=== PATIENT | male | born 1950 | race Caucasian/White ===

== ENCOUNTER 2018-02-13 20:53 | Emergency (ER) | payer OTHER ==
[~2018-02-13] VITALS: Ht 180.3 cm; Wt 91.6 kg
[2018-02-13] MEDS ORDERED: SITA100T2 PO (21:45)
[2018-02-13] MEDS ORDERED: METF500 PO (21:45)
[2018-02-13] MEDS ORDERED: TIOT18 INH (21:46)
[2018-02-13] MEDS ORDERED: POTA10T PO (21:46)
[2018-02-13] MEDS ORDERED: COMBIVENT RESPIM4 GM (21:46)
[2018-02-13] MEDS ORDERED: EZET10 PO (21:47)
[2018-02-13] MEDS ORDERED: LOSA25 PO (21:47)
[2018-02-13] MEDS ORDERED: ASPI81CH PO (21:47)
[2018-02-13] MEDS ORDERED: LOVA40 (21:47)
[2018-02-13] MEDS ORDERED: MELO7.5 PO (21:48)
[2018-02-13] MEDS ORDERED: GABA100 PO (21:48)
[2018-02-13] MEDS ORDERED: METCAR500 PO (21:49)
[2018-02-13] MEDS ORDERED: CHOL10002 (21:49)
[2018-02-13 22:24] LABS: Source, Urine Clean Catch
[2018-02-13 22:26] LABS: Bilirubin, Urine Neg (Neg); Blood, Urine Neg (Neg); Glucose Qualitative, Urine 4+ (Neg); Ketones, Urine 2+ (Neg); Leukocyte Esterase, Urine Neg (Neg); Nitrite, Urine Neg (Neg); Protein, Urine Neg (Neg); Specific Gravity, Urine 1.025 (1.003-1.022); Urobilinogen, Urine 1+ (Normal)
[2018-02-13 22:31] LABS: Appearance, Urine Clear (Clear); Color, Urine Yellow (P-Yellow)
[2018-02-14 00:36] LABS: Amylase, Blood 66 U/L (25-115)
== END 2018-02-13 23:42 | disposition home or self-care (01) ==
LOC: ER 20:53
PROVIDERS: Emergency Medicine; Nurse Practitioner Family
DX: D47.3 Essential (hemorrhagic) thrombocythemia (principal); D72.829 Elevated white blood cell count, unspecified; E11.9 Type 2 diabetes mellitus without complications; F17.210 Nicotine dependence, cigarettes, uncomplicated; Z79.84 Long term (current) use of oral hypoglycemic drugs; Z79.82 Long term (current) use of aspirin; Z79.899 Other long term (current) drug therapy
CPT/HCPCS: 36415; 71046; 81003; 82150; 83690; 99283

== ENCOUNTER → 2018-02-13 | Outpatient (CLI) | payer OTHER ==
[~2018-02-13] MED LIST: ASPI81CH PO; CHOL10002; COMBIVENT RESPIM4 GM; EZET10 PO; GABA100 PO; LOSA25 PO; LOVA40; MELO7.5 PO; METCAR500 PO; METF500 PO; POTA10T PO; SITA100T2 PO; TIOT18 INH
[2018-02-13 16:06] LABS: BASOPHILS ABSOLUTE AUTO 0.24 K/mm3 (0.00-0.23); BASOPHILS PERCENT AUTO 1 % (0-2); EOSINOPHILS ABSOLUTE AUTO 0.35 K/mm3 (0.00-0.68); EOSINOPHILS PERCENT AUTO 2 % (0-6); Hematocrit 51.3 % (37.0-53.0); Hemoglobin 17.1 g/dL (13.5-17.5); IMMATURE GRAN ABSOLUTE AUTO 0.29 K/mm3 (0.00-0.10); IMMATURE GRAN PERCENT AUTO 2 % (0-1); LYMPHOCYTES ABSOLUTE AUTO 2.98 K/mm3 (0.84-5.20); LYMPHOCYTES PERCENT AUTO 16 % (21-46); MONOCYTES ABSOLUTE AUTO 0.48 K/mm3 (0.16-1.47); MONOCYTES PERCENT AUTO 3 % (4-13); Mean Corpuscular HGB 29.5 pg (26.0-34.0); Mean Corpuscular HGB Conc 33.3 g/dL (31.5-36.5); Mean Corpuscular Volume 89 fL (80-100); Mean Platelet Volume 11.7 fL (9.1-12.4); NEUTROPHILS ABSOLUTE AUTO 14.48 K/mm3 (1.96-9.15); NEUTROPHILS PERCENT AUTO 77 % (41-73); Platelet Count 994 K/mm3 (150-400); RDW Coefficient Variation 13.3 % (11.7-14.2); RDW Standard Deviation 42.7 fL (35.1-46.3); Red Blood Cell Count 5.79 M/mm3 (4.30-5.90); White Blood Cell Count 18.82 K/mm3 (4.00-11.30)
[2018-02-13 16:35] LABS: Alanine Aminotransfer (ALT/SGP 59 U/L (12-78); Albumin, Blood 4.1 g/dL (3.4-5.0); Albumin/Globulin Ratio 1.2 (0.8-1.8); Alk Phos 96 U/L (50-136); Anion Gap 9 mmol/L (6-16); Aspartate Aminotrans (AST/SGOT 40 U/L (12-37); Bilirubin, Total 0.6 mg/dL (0.1-1.0); Blood Urea Nitrogen 12 mg/dL (8-24); Bun/Creatinine Ratio 19.2 (12.0-20.0); CHOL/HDL RATIO 5.4; CO2, Blood 24 mmol/L (21-32); Chloride, Blood 101 mmol/L (98-108); Cholesterol 134 mg/dL (50-200); Creatinine, Blood 0.62 mg/dL (0.60-1.20); Globulin, Blood 3.3 g/dL (2.2-4.0); Glomerular Filtration Rate >60 (60-); Glucose, Blood 343 mg/dL (70-99); HDL Cholesterol 25 mg/dL (>39); LDL/HDL RATIO 2.2; Low Density Lipoprotein Chol 56 mg/dL (0-110); Potassium, Blood 4.5 mmol/L (3.5-5.5); Sodium, Blood 134 mmol/L (136-145); Total Protein, Blood 7.4 g/dL (6.4-8.2); Triglycerides 266 mg/dL (30-160); Very Low Density Lipoprot Chol 53 mg/dL (6-32)
[2018-02-13 19:17] LABS: Hematocrit 50.3 % (37.0-53.0); Hemoglobin 16.9 g/dL (13.5-17.5); Mean Corpuscular HGB Conc 33.6 g/dL (31.5-36.5); Mean Corpuscular Volume 89 fL (80-100); Mean Platelet Volume 11.3 fL (9.1-12.4); RDW Coefficient Variation 13.1 % (11.7-14.2); RDW Standard Deviation 42.7 fL (35.1-46.3); Red Blood Cell Count 5.64 M/mm3 (4.30-5.90); White Blood Cell Count 20.11 K/mm3 (4.00-11.30)
[2018-02-13 19:34] LABS: Platelet Count 1050 K/mm3 (150-400)
[2018-02-13 19:39] LABS: BAND PERCENT MAN 1 % (0-8); BASOPHILS PERCENT MAN 0 % (0-2); EOSINOPHILS PERCENT MAN 0 % (0-6); LYMPHOCYTES ABSOLUTE MAN 2.61 K/mm3 (0.84-5.20); LYMPHOCYTES PERCENT MAN 13 % (21-46); MONOCYTES PERCENT MAN 1 % (4-13); NEUTROPHILS ABSOLUTE MAN 17.29 K/mm3 (1.96-9.15); SEG NEUTROPHILS PERCENT MAN 85 % (41-73); TOTAL CELLS COUNTED 100
[2018-02-16 08:11] LABS: Amylase, Blood 35 U/L (25-115)
== END ==
LOC: LAB 15:53 → LAB SHORT 15:53
PROVIDERS: Nurse Practitioner Family
DX: I10 Essential (primary) hypertension (principal); E78.5 Hyperlipidemia, unspecified; E55.9 Vitamin D deficiency, unspecified; D47.3 Essential (hemorrhagic) thrombocythemia; D72.829 Elevated white blood cell count, unspecified
CPT/HCPCS: 80053; 80061; 82150; 82306; 83690; 85007; 85025; 85027

== ENCOUNTER → 2018-02-19 | Outpatient (CLI) | payer OTHER ==
[2018-02-19 14:14] LABS: BASOPHILS ABSOLUTE AUTO 0.18 K/mm3 (0.00-0.23); BASOPHILS PERCENT AUTO 1 % (0-2); EOSINOPHILS ABSOLUTE AUTO 0.15 K/mm3 (0.00-0.68); EOSINOPHILS PERCENT AUTO 1 % (0-6); Hemoglobin 16.5 g/dL (13.5-17.5); IMMATURE GRAN ABSOLUTE AUTO 0.12 K/mm3 (0.00-0.10); IMMATURE GRAN PERCENT AUTO 1 % (0-1); LYMPHOCYTES ABSOLUTE AUTO 2.02 K/mm3 (0.84-5.20); LYMPHOCYTES PERCENT AUTO 13 % (21-46); MONOCYTES ABSOLUTE AUTO 0.38 K/mm3 (0.16-1.47); MONOCYTES PERCENT AUTO 2 % (4-13); Mean Corpuscular HGB 29.9 pg (26.0-34.0); Mean Corpuscular Volume 91 fL (80-100); Mean Platelet Volume 11.4 fL (9.1-12.4); NEUTROPHILS ABSOLUTE AUTO 13.12 K/mm3 (1.96-9.15); NEUTROPHILS PERCENT AUTO 82 % (41-73); RDW Coefficient Variation 13.2 % (11.7-14.2); Red Blood Cell Count 5.52 M/mm3 (4.30-5.90); White Blood Cell Count 15.97 K/mm3 (4.00-11.30)
[2018-02-19 14:24] LABS: Platelet Count 1193 K/mm3 (150-400)
== END | disposition home or self-care (01) ==
LOC: LAB SHORT 13:58 → LAB 13:58
PROVIDERS: Nurse Practitioner Family
DX: R74.8 Abnormal levels of other serum enzymes (principal)
CPT/HCPCS: 83690; 85025

== ENCOUNTER → 2018-03-06 | Outpatient (CLI) | payer OTHER ==
[~2018-03-06] MED LIST changes: +ASPI325 PO
[2018-03-06 19:26] LABS: BASOPHILS ABSOLUTE AUTO 0.26 K/mm3 (0.00-0.23); BASOPHILS PERCENT AUTO 2 % (0-2); EOSINOPHILS ABSOLUTE AUTO 0.25 K/mm3 (0.00-0.68); EOSINOPHILS PERCENT AUTO 1 % (0-6); Hematocrit 45.9 % (37.0-53.0); Hemoglobin 15.2 g/dL (13.5-17.5); IMMATURE GRAN ABSOLUTE AUTO 0.27 K/mm3 (0.00-0.10); IMMATURE GRAN PERCENT AUTO 2 % (0-1); LYMPHOCYTES ABSOLUTE AUTO 2.49 K/mm3 (0.84-5.20); LYMPHOCYTES PERCENT AUTO 14 % (21-46); MONOCYTES ABSOLUTE AUTO 0.39 K/mm3 (0.16-1.47); MONOCYTES PERCENT AUTO 2 % (4-13); Mean Corpuscular HGB 29.6 pg (26.0-34.0); Mean Corpuscular HGB Conc 33.1 g/dL (31.5-36.5); Mean Corpuscular Volume 90 fL (80-100); Mean Platelet Volume 11.1 fL (9.1-12.4); NEUTROPHILS ABSOLUTE AUTO 14.06 K/mm3 (1.96-9.15); NEUTROPHILS PERCENT AUTO 79 % (41-73); RDW Coefficient Variation 13.2 % (11.7-14.2); RDW Standard Deviation 43.5 fL (35.1-46.3); Red Blood Cell Count 5.13 M/mm3 (4.30-5.90); White Blood Cell Count 17.72 K/mm3 (4.00-11.30)
[2018-03-06 19:55] LABS: Amylase, Blood 32 U/L (25-115)
[2018-03-06 19:56] LABS: Alanine Aminotransfer (ALT/SGP 51 U/L (12-78); Albumin, Blood 3.9 g/dL (3.4-5.0); Albumin/Globulin Ratio 1.3 (0.8-1.8); Alk Phos 90 U/L (50-136); Anion Gap 9 mmol/L (6-16); Aspartate Aminotrans (AST/SGOT 35 U/L (12-37); Bilirubin, Total 0.4 mg/dL (0.1-1.0); Blood Urea Nitrogen 10 mg/dL (8-24); CO2, Blood 23 mmol/L (21-32); Chloride, Blood 103 mmol/L (98-108); Creatinine, Blood 0.62 mg/dL (0.60-1.20); Globulin, Blood 3.1 g/dL (2.2-4.0); Glomerular Filtration Rate >60 (60-); Glucose, Blood 252 mg/dL (70-99); Potassium, Blood 4.5 mmol/L (3.5-5.5); Sodium, Blood 135 mmol/L (136-145)
[2018-03-06 20:34] LABS: Platelet Count 1236 K/mm3 (150-400)
== END | disposition home or self-care (01) ==
LOC: LAB SHORT 15:00 → LAB 15:00
PROVIDERS: Nurse Practitioner Family
DX: K85.10 Biliary acute pancreatitis without necrosis or infection (principal)
CPT/HCPCS: 80053; 82150; 83690; 85025

== ENCOUNTER 2018-03-12 12:44 | Inpatient (IN) | payer OTHER ==
[~2018-03-12] VITALS: Ht 180.3 cm; Wt 91.0 kg
[~2018-03-12 12:44] MED LIST changes: -ASPI325 PO
[2018-03-12 13:00] LABS: Calcium, Ionized (POC) 1.06 mmol/L (1.10-1.46); Chloride (POC) 99 mmol/L (98-108); Creatinine (POC) 0.9 mg/dL (0.8-1.3); Glucose (ISTAT POC) 335 mg/dL (70-99); Hemoglobin (POC) 15.6 g/dL (13.5-17.5); Potassium (POC) 4.5 mmol/L (3.5-5.5); Sodium (POC) 135 mmol/L (135-148); Total CO2 (POC) 27 mmol/L (21-32)
[2018-03-12 13:26] LABS: Hematocrit 44.7 % (37.0-53.0); Hemoglobin 14.8 g/dL (13.5-17.5); Mean Corpuscular HGB 29.9 pg (26.0-34.0); Mean Corpuscular HGB Conc 33.1 g/dL (31.5-36.5); Mean Corpuscular Volume 90 fL (80-100); Mean Platelet Volume 11.2 fL (9.1-12.4); RDW Coefficient Variation 13.4 % (11.7-14.2); RDW Standard Deviation 44.3 fL (35.1-46.3); Red Blood Cell Count 4.95 M/mm3 (4.30-5.90); White Blood Cell Count 26.69 K/mm3 (4.00-11.30)
[2018-03-12 13:44] LABS: Platelet Count 1268 K/mm3 (150-400)
[2018-03-12 13:51] LABS: Alanine Aminotransfer (ALT/SGP 48 U/L (12-78); Albumin, Blood 3.7 g/dL (3.4-5.0); Albumin/Globulin Ratio 1.1 (0.8-1.8); Alk Phos 88 U/L (50-136); Anion Gap 11 mmol/L (6-16); Aspartate Aminotrans (AST/SGOT 28 U/L (12-37); Bilirubin, Total 0.6 mg/dL (0.1-1.0); Blood Urea Nitrogen 12 mg/dL (8-24); CHOL/HDL RATIO 4.2; CO2, Blood 24 mmol/L (21-32); Calcium, Blood 9.5 mg/dL (8.5-10.1); Chloride, Blood 101 mmol/L (98-108); Cholesterol 109 mg/dL (50-200); Creatinine, Blood 0.86 mg/dL (0.60-1.20); Globulin, Blood 3.3 g/dL (2.2-4.0); Glomerular Filtration Rate >60 (60-); Glucose, Blood 330 mg/dL (70-99); HDL Cholesterol 26 mg/dL (>39); LDL/HDL RATIO 1.7; Low Density Lipoprotein Chol 43 mg/dL (0-110); Magnesium, Blood 1.8 mg/dL (1.6-2.4); Potassium, Blood 4.2 mmol/L (3.5-5.5); Sodium, Blood 136 mmol/L (136-145); Triglycerides 198 mg/dL (30-160); Troponin I 0.028 ng/mL (0.000-0.040); Very Low Density Lipoprot Chol 39 mg/dL (6-32)
[2018-03-12] MEDS ORDERED: ASPI325 PO (14:36)
[2018-03-13 05:17] LABS: BASOPHILS ABSOLUTE AUTO 0.23 K/mm3 (0.00-0.23); BASOPHILS PERCENT AUTO 1 % (0-2); EOSINOPHILS ABSOLUTE AUTO 0.49 K/mm3 (0.00-0.68); EOSINOPHILS PERCENT AUTO 2 % (0-6); Hematocrit 38.9 % (37.0-53.0); Hemoglobin 12.9 g/dL (13.5-17.5); IMMATURE GRAN ABSOLUTE AUTO 0.35 K/mm3 (0.00-0.10); IMMATURE GRAN PERCENT AUTO 2 % (0-1); LYMPHOCYTES ABSOLUTE AUTO 3.69 K/mm3 (0.84-5.20); LYMPHOCYTES PERCENT AUTO 16 % (21-46); MONOCYTES ABSOLUTE AUTO 0.54 K/mm3 (0.16-1.47); MONOCYTES PERCENT AUTO 2 % (4-13); Mean Corpuscular HGB 29.8 pg (26.0-34.0); Mean Corpuscular HGB Conc 33.2 g/dL (31.5-36.5); Mean Corpuscular Volume 90 fL (80-100); Mean Platelet Volume 10.9 fL (9.1-12.4); NEUTROPHILS ABSOLUTE AUTO 18.57 K/mm3 (1.96-9.15); NEUTROPHILS PERCENT AUTO 78 % (41-73); RDW Coefficient Variation 13.5 % (11.7-14.2); Red Blood Cell Count 4.33 M/mm3 (4.30-5.90); White Blood Cell Count 23.87 K/mm3 (4.00-11.30)
[2018-03-13 05:24] LABS: Platelet Count 1193 K/mm3 (150-400)
[2018-03-13 05:38] LABS: Anion Gap 9 mmol/L (6-16); Blood Urea Nitrogen 15 mg/dL (8-24); Bun/Creatinine Ratio 23.7 (12.0-20.0); CO2, Blood 24 mmol/L (21-32); Calcium, Blood 7.9 mg/dL (8.5-10.1); Chloride, Blood 104 mmol/L (98-108); Creatinine, Blood 0.63 mg/dL (0.60-1.20); Glomerular Filtration Rate >60 (60-); Glucose, Blood 200 mg/dL (70-99); Potassium, Blood 3.6 mmol/L (3.5-5.5); Sodium, Blood 137 mmol/L (136-145)
== END 2018-03-13 11:50 | disposition left against medical advice (07) | DRG 247 ==
LOC: ER 12:44 → ICUW 13:03
PROVIDERS: Emergency Medicine; Internal Medicine Interventional Cardiology
PROC: 027034Z Dilation of Coronary Artery, One Artery with Drug-eluting Intraluminal Device, Percutaneous Approach (ICD-10-PCS; principal; 2018-03-12)
PROC: 02703ZZ Dilation of Coronary Artery, One Artery, Percutaneous Approach (ICD-10-PCS; 2018-03-12)
PROC: 4A023N7 Measurement of Cardiac Sampling and Pressure, Left Heart, Percutaneous Approach (ICD-10-PCS; 2018-03-12)
PROC: B2111ZZ Fluoroscopy of Multiple Coronary Arteries using Low Osmolar Contrast (ICD-10-PCS; 2018-03-12)
DX: I21.19 ST elevation (STEMI) myocardial infarction involving other coronary artery of inferior wall (principal); C94.6 Myelodysplastic disease, not elsewhere classified; D47.3 Essential (hemorrhagic) thrombocythemia; E11.9 Type 2 diabetes mellitus without complications; I10 Essential (primary) hypertension; J44.9 Chronic obstructive pulmonary disease, unspecified; F17.210 Nicotine dependence, cigarettes, uncomplicated; G47.33 Obstructive sleep apnea (adult) (pediatric); G89.29 Other chronic pain; E66.9 Obesity, unspecified; Z68.27 Body mass index [BMI] 27.0-27.9, adult; I25.10 Atherosclerotic heart disease of native coronary artery without angina pectoris
CPT/HCPCS: 36415; 80047; 80048; 80053; 80061; 82947; 83036; 83735; 84484; 85014; 85025; 85027; 85347; 85730; 86850; 86900; 86901; 92978; 93005; 93010; 93306; 93454; 99152; 99153; A9270; C1725; C1753; C1769; C1874; C1894; C9606; J0461; J1644; J1815; J2250; J3010; J3246; J7030; Q9967

== ENCOUNTER → 2019-12-23 | Outpatient (CLI) | payer OTHER ==
[~2019-12-23] MED LIST changes: +ASPI325 PO
== END ==
LOC: LAB SHORT 16:00 → OLS 16:00
DX: E11.9 Type 2 diabetes mellitus without complications (principal)
CPT/HCPCS: 82043

== ENCOUNTER 2020-12-05 16:00 | Emergency (ER) | payer OTHER ==
[~2020-12-05] VITALS: Ht 177.8 cm; Wt 83.9 kg
[2020-12-05 16:58] LABS: BASOPHILS ABSOLUTE AUTO 0.02 K/mm3 (0.00-0.23); BASOPHILS PERCENT AUTO 0 % (0-2); EOSINOPHILS ABSOLUTE AUTO 0.04 K/mm3 (0.00-0.68); EOSINOPHILS PERCENT AUTO 1 % (0-6); Hematocrit 47.9 % (37.0-53.0); Hemoglobin 17.2 g/dL (13.5-17.5); IMMATURE GRAN ABSOLUTE AUTO 0.03 K/mm3 (0.00-0.10); IMMATURE GRAN PERCENT AUTO 0 % (0-1); LYMPHOCYTES ABSOLUTE AUTO 2.64 K/mm3 (0.84-5.20); LYMPHOCYTES PERCENT AUTO 30 % (21-46); MONOCYTES ABSOLUTE AUTO 0.48 K/mm3 (0.16-1.47); MONOCYTES PERCENT AUTO 5 % (4-13); Mean Corpuscular HGB 31.2 pg (26.0-34.0); Mean Corpuscular HGB Conc 35.9 g/dL (31.5-36.5); Mean Corpuscular Volume 87 fL (80-100); Mean Platelet Volume 11.5 fL (9.1-12.4); NEUTROPHILS ABSOLUTE AUTO 5.64 K/mm3 (1.96-9.15); NEUTROPHILS PERCENT AUTO 64 % (41-73); Platelet Count 312 K/mm3 (150-400); RDW Coefficient Variation 12.8 % (11.7-14.2); RDW Standard Deviation 40.3 fL (35.1-46.3); Red Blood Cell Count 5.52 M/mm3 (4.30-5.90); White Blood Cell Count 8.85 K/mm3 (4.00-11.30)
[2020-12-05 18:31] LABS: Alanine Aminotransfer (ALT/SGP 53 U/L (12-78); Albumin, Blood 3.9 g/dL (3.4-5.0); Alk Phos 125 U/L (50-136); Anion Gap 8 mmol/L (6-16); Aspartate Aminotrans (AST/SGOT 32 U/L (12-37); Bilirubin, Total 0.7 mg/dL (0.1-1.0); Blood Urea Nitrogen 12 mg/dL (8-24); Bun/Creatinine Ratio 20.2 (12.0-20.0); CO2, Blood 26 mmol/L (21-32); Calcium, Blood 9.5 mg/dL (8.5-10.1); Chloride, Blood 100 mmol/L (98-108); Creatinine, Blood 0.59 mg/dL (0.60-1.20); Globulin, Blood 3.9 g/dL (2.2-4.0); Glomerular Filtration Rate >60 (60-); Glucose, Blood 407 mg/dL (70-99); Potassium, Blood 4.7 mmol/L (3.5-5.5); Sodium, Blood 134 mmol/L (136-145); Total Protein, Blood 7.8 g/dL (6.4-8.2)
== END 2020-12-05 18:44 | disposition left against medical advice (07) ==
LOC: ER 16:00
PROVIDERS: Physician Assistant
DX: R73.9 Hyperglycemia, unspecified (principal); Z53.21 Procedure and treatment not carried out due to patient leaving prior to being seen by health care provider; Z79.84 Long term (current) use of oral hypoglycemic drugs; Z79.82 Long term (current) use of aspirin; Z79.899 Other long term (current) drug therapy
CPT/HCPCS: 36415; 80053; 85025; 93005; 93010; 99284-25

== ENCOUNTER 2021-05-04 23:33 | Emergency (ER) | payer OTHER ==
[~2021-05-04] VITALS: Ht 172.7 cm; Wt 79.8 kg
[2021-05-05 00:15] LABS: BASOPHILS ABSOLUTE AUTO 0.02 K/mm3 (0.00-0.23); BASOPHILS PERCENT AUTO 0 % (0-2); EOSINOPHILS ABSOLUTE AUTO 0.09 K/mm3 (0.00-0.68); EOSINOPHILS PERCENT AUTO 1 % (0-6); Hematocrit 37.2 % (37.0-53.0); Hemoglobin 12.3 g/dL (13.5-17.5); IMMATURE GRAN ABSOLUTE AUTO 0.04 K/mm3 (0.00-0.10); IMMATURE GRAN PERCENT AUTO 1 % (0-1); LYMPHOCYTES ABSOLUTE AUTO 2.02 K/mm3 (0.84-5.20); LYMPHOCYTES PERCENT AUTO 26 % (21-46); MONOCYTES ABSOLUTE AUTO 0.47 K/mm3 (0.16-1.47); MONOCYTES PERCENT AUTO 6 % (4-13); Mean Corpuscular HGB 31.3 pg (26.0-34.0); Mean Corpuscular HGB Conc 33.1 g/dL (31.5-36.5); Mean Corpuscular Volume 95 fL (80-100); Mean Platelet Volume 10.1 fL (9.1-12.4); NEUTROPHILS ABSOLUTE AUTO 5.24 K/mm3 (1.96-9.15); NEUTROPHILS PERCENT AUTO 67 % (41-73); Platelet Count 310 K/mm3 (150-400); RDW Coefficient Variation 13.2 % (11.7-14.2); RDW Standard Deviation 46.2 fL (35.1-46.3); Red Blood Cell Count 3.93 M/mm3 (4.30-5.90); White Blood Cell Count 7.88 K/mm3 (4.00-11.30)
[2021-05-05 00:37] LABS: Ethanol (Alcohol), Blood, Med <3 mg/dL; Magnesium, Blood 2.1 mg/dL (1.6-2.4)
[2021-05-05 00:38] LABS: CPK Creatine Kinase 25 U/L (39-308); Creatine Kinase MB 1.7 ng/mL (0.0-3.6); Creatine Kinase MB Index 6.8 (0.0-4.0); Troponin I <0.015 ng/mL (0.000-0.040)
[2021-05-05 00:40] LABS: Acetaminophen, Random <2.0 ug/mL (10.0-30.0); Alanine Aminotransfer (ALT/SGP 98 U/L (12-78); Albumin, Blood 2.2 g/dL (3.4-5.0); Albumin/Globulin Ratio 0.6 (0.8-1.8); Alk Phos 318 U/L (50-136); Anion Gap 6 mmol/L (6-16); Aspartate Aminotrans (AST/SGOT 40 U/L (12-37); Bilirubin, Total 1.3 mg/dL (0.1-1.0); Blood Urea Nitrogen 20 mg/dL (8-24); Bun/Creatinine Ratio 39.7 (12.0-20.0); CO2, Blood 27 mmol/L (21-32); Calcium, Blood 8.6 mg/dL (8.5-10.1); Chloride, Blood 96 mmol/L (98-108); Globulin, Blood 3.9 g/dL (2.2-4.0); Glomerular Filtration Rate >60 (60-); Glucose, Blood 684 mg/dL (70-99); Potassium, Blood 4.1 mmol/L (3.5-5.5); Salicylate <1.7 mg/dL (2.8-20.0); Sodium, Blood 129 mmol/L (136-145); Total Protein, Blood 6.1 g/dL (6.4-8.2)
[2021-05-05 00:58] LABS: Source, Urine Catheter
[2021-05-05 01:02] LABS: Bilirubin, Urine Neg (Neg); Blood, Urine Neg (Neg); Glucose Qualitative, Urine 4+ (Neg); Ketones, Urine Neg (Neg); Leukocyte Esterase, Urine 3+ (Neg); Nitrite, Urine Neg (Neg); Protein, Urine Neg (Neg); Urobilinogen, Urine NORM (Normal); pH, Urine 6.5 (5.0-8.0)
[2021-05-05 01:03] LABS: Appearance, Urine Clear (Clear); Color, Urine Pale Yellow (P-Yellow)
[2021-05-05 01:09] LABS: Bacteria Not Seen /hpf; Red Blood Cells, Urine Not Seen /hpf (0-2); Squamous Epithelial Cells Rare /hpf (Few); Yeast/Fungi Urine Many /hpf
[2021-05-05 01:15] LABS: U Amphetamine Screen Not Detected; U Barbituate Screen Not Detected; U Benzodiazapine Screen Not Detected; U Buprenorphine Screen Not Detected; U Cannabinoids Screen Not Detected; U Cocaine Screen Not Detected; U Methadone Screen Not Detected; U Methamphetamine Screen Not Detected; U Opiates Screen Not Detected; U Oxycodone Screen Not Detected; U Phencyclidine Screen Not Detected; U Propoxyphene Screen Not Detected
== END 2021-05-05 04:10 | disposition home or self-care (01) ==
LOC: ER 23:33
PROVIDERS: Emergency Medicine
DX: E11.65 Type 2 diabetes mellitus with hyperglycemia (principal); F17.210 Nicotine dependence, cigarettes, uncomplicated; E86.0 Dehydration; B37.49 Other urogenital candidiasis; Z91.14 Patient's other noncompliance with medication regimen
CPT/HCPCS: 36415; 70450; 71045; 80053; 81001; 82140; 82550; 82553; 82947; 83605; 83690; 83735; 83880; 84145; 84484; 85025; 87086; 93005; 93010; 96360; 99285-25; A9270; G0480; J1815; J7120

== ENCOUNTER 2021-08-03 14:20 | Inpatient (IN) | payer OTHER ==
[~2021-08-03] VITALS: Ht 177.8 cm; Wt 54.4 kg
[~2021-08-03 14:20] MED LIST changes: -CHOL10002; +COMBIVENT RESPIM4 G1 INH; -COMBIVENT RESPIM4 GM; -LOVA40; +LOVA40 PO; -METCAR500 PO; +Robaxin750 MG PO; +VITAMIN D31000 UNI1 PO
[2021-08-03 14:49] LABS: BASOPHILS ABSOLUTE AUTO 0.01 K/mm3 (0.00-0.23); BASOPHILS PERCENT AUTO 0 % (0-2); EOSINOPHILS PERCENT AUTO 0 % (0-6); Hematocrit 34.2 % (37.0-53.0); Hemoglobin 11.5 g/dL (13.5-17.5); IMMATURE GRAN ABSOLUTE AUTO 0.04 K/mm3 (0.00-0.10); IMMATURE GRAN PERCENT AUTO 0 % (0-1); LYMPHOCYTES PERCENT AUTO 7 % (21-46); MONOCYTES ABSOLUTE AUTO 0.72 K/mm3 (0.16-1.47); MONOCYTES PERCENT AUTO 5 % (4-13); Mean Corpuscular HGB 30.1 pg (26.0-34.0); Mean Corpuscular HGB Conc 33.6 g/dL (31.5-36.5); Mean Corpuscular Volume 90 fL (80-100); Mean Platelet Volume 10.1 fL (9.1-12.4); NEUTROPHILS ABSOLUTE AUTO 12.21 K/mm3 (1.96-9.15); NEUTROPHILS PERCENT AUTO 88 % (41-73); Platelet Count 314 K/mm3 (150-400); RDW Coefficient Variation 14.6 % (11.7-14.2); Red Blood Cell Count 3.82 M/mm3 (4.30-5.90); White Blood Cell Count 13.88 K/mm3 (4.00-11.30)
[2021-08-03 15:08] LABS: Alanine Aminotransfer (ALT/SGP 122 U/L (12-78); Albumin/Globulin Ratio 0.4 (0.8-1.8); Alk Phos 739 U/L (50-136); Anion Gap 22 mmol/L (6-16); Aspartate Aminotrans (AST/SGOT 172 U/L (12-37); Bilirubin, Total 4.3 mg/dL (0.1-1.0); Blood Urea Nitrogen 100 mg/dL (8-24); Bun/Creatinine Ratio 15.2 (12.0-20.0); CO2, Blood 18 mmol/L (21-32); Calcium, Blood 6.3 mg/dL (8.5-10.1); Chloride, Blood 87 mmol/L (98-108); Creatinine, Blood 6.58 mg/dL (0.60-1.20); Ethanol (Alcohol), Blood, Med <3 mg/dL; Globulin, Blood 5.1 g/dL (2.2-4.0); Glomerular Filtration Rate 8 (60-); Glucose, Blood 191 mg/dL (70-99); Sodium, Blood 127 mmol/L (136-145); Total Protein, Blood 7.1 g/dL (6.4-8.2)
[2021-08-03 18:00] LABS: SARS-Cov-2 (COVID-19) PCR, MMC NEGATIVE (NEGATIVE)
[2021-08-03 19:35] LABS: Calcium, Ionized (POC) 0.67 mmol/L (1.10-1.46); Chloride (POC) 95 mmol/L (98-108); Creatinine (POC) 7.4 mg/dL (0.8-1.3); Glucose (ISTAT POC) 199 mg/dL (70-99); Hemoglobin (POC) 11.6 g/dL (13.5-17.5); Potassium (POC) 5.2 mmol/L (3.5-5.5); Sodium (POC) 128 mmol/L (135-148); Total CO2 (POC) 18 mmol/L (21-32)
[2021-08-03 19:38] LABS: Source, Urine Clean Catch
[2021-08-03 19:43] LABS: Appearance, Urine Hazy (Clear); Blood, Urine 1+ (Neg); Color, Urine Brown (P-Yellow); Glucose Qualitative, Urine Neg (Neg); Ketones, Urine 1+ (Neg); Leukocyte Esterase, Urine 1+ (Neg); Nitrite, Urine Neg (Neg); Protein, Urine 2+ (Neg); Urobilinogen, Urine 1+ (Normal)
[2021-08-03 19:49] LABS: Bilirubin, Urine 1+ (Neg)
[2021-08-03 19:51] LABS: White Blood Cells, Urine 0-2 /hpf (0-5)
[2021-08-03 19:52] LABS: Amorphous Light (0-Heavy); Bacteria Rare /hpf; Hyaline Casts 0-2 /lpf (0-2); Red Blood Cells, Urine 0-2 /hpf (0-2); Squamous Epithelial Cells Few /hpf (Few)
--- NOTE | 2021-08-04 01:22 | NUR ---
PATIENT IS TRANFERED FROM ER TODAY, PATIENT IS ALERT, RESPONSIVE, BUT CONFUSED. RN TO RN REPORT RECEIVED. PATIENT WAS ADMITTED DUE TO ALTERED MENTAL STATUS, FAILURE TO STRIVEN AND WEAKNESS. PATIENT IS DISORIENTED AND UNABLE TO VERBALIZE, ANSWERE ADMISSION QUESTIONS NOR ABLE TO MAKE HIS NEEDS KNOWN. PATIENT IS RESISTIVE WITH PATIENT CARE. PATIENT HAS A LOVE CATHETER THAT IS DRAINING ORAL COLLORED URINE. IV NORMAL SALIN INFUSING. PATIENT REMAINS ON NPO STATUS. PATIENT HAS 02 AT 2L NASAL CANULA, NO S/S OF PAIN OR DISTRESS NOTED. WILL CONTINUE TO MONITOR.
--- NOTE | 2021-08-04 02:19 | NUR ---
PATIENT IS ALERT AND OREINTED X3. PATIENT REPORTED COUGHING AND WAS GIVEN ROBITUSSIN 10ML PO WITH GOOD EFFECT. PATIENT WAS RUNNING A TEMP OF 100.0. PATIENT WAS MEDICATED WITH TYLENOL 650 MG PO WITH GOOD EFFECT, TEMP REDUCED TO 98.0. PATIENT CONTINUE TO SIT AT THE EDGE OF THE BED MAJORITY OF THE NIGHT. WILL CONTINUE TO MONITOR.
[2021-08-04 05:27] LABS: BASOPHILS ABSOLUTE AUTO 0.01 K/mm3 (0.00-0.23); BASOPHILS PERCENT AUTO 0 % (0-2); EOSINOPHILS ABSOLUTE AUTO 0.01 K/mm3 (0.00-0.68); EOSINOPHILS PERCENT AUTO 0 % (0-6); Hematocrit 32.1 % (37.0-53.0); Hemoglobin 10.7 g/dL (13.5-17.5); IMMATURE GRAN ABSOLUTE AUTO 0.09 K/mm3 (0.00-0.10); IMMATURE GRAN PERCENT AUTO 1 % (0-1); LYMPHOCYTES ABSOLUTE AUTO 0.69 K/mm3 (0.84-5.20); LYMPHOCYTES PERCENT AUTO 6 % (21-46); MONOCYTES ABSOLUTE AUTO 0.67 K/mm3 (0.16-1.47); MONOCYTES PERCENT AUTO 6 % (4-13); Mean Corpuscular HGB 29.9 pg (26.0-34.0); Mean Corpuscular HGB Conc 33.3 g/dL (31.5-36.5); Mean Corpuscular Volume 90 fL (80-100); Mean Platelet Volume 10.2 fL (9.1-12.4); NEUTROPHILS ABSOLUTE AUTO 9.76 K/mm3 (1.96-9.15); NEUTROPHILS PERCENT AUTO 87 % (41-73); Platelet Count 228 K/mm3 (150-400); RDW Coefficient Variation 14.6 % (11.7-14.2); RDW Standard Deviation 48.3 fL (35.1-46.3); Red Blood Cell Count 3.58 M/mm3 (4.30-5.90); White Blood Cell Count 11.23 K/mm3 (4.00-11.30)
[2021-08-04 05:40] LABS: International Normalized Ratio 1.09; Prothrombin Time Results 11.4 Sec (9.7-11.5)
[2021-08-04 05:50] LABS: Albumin, Blood 1.8 g/dL (3.4-5.0); Albumin/Globulin Ratio 0.4 (0.8-1.8); Bilirubin, Total 3.3 mg/dL (0.1-1.0); Bun/Creatinine Ratio 14.3 (12.0-20.0); Calcium, Blood 6.1 mg/dL (8.5-10.1); Creatinine, Blood 6.84 mg/dL (0.60-1.20); Globulin, Blood 4.7 g/dL (2.2-4.0); Potassium, Blood 4.6 mmol/L (3.5-5.5); Total Protein, Blood 6.5 g/dL (6.4-8.2)
[2021-08-04] MEDS ORDERED: INSULANI SC (10:23)
[2021-08-04] MEDS ORDERED: TASIGNA150 MG PO (10:24)
[2021-08-04 12:39] LABS: PCO2 Arterial 33 mmHg (35-45); PO2 Arterial 58 mmHg (80-100); pH Blood Arterial 7.28 (7.35-7.45)
[2021-08-04 12:54] LABS: Amylase, Blood 68 U/L (25-115)
[2021-08-04 13:16] LABS: Eosinophils-Raw #,Urine 0
--- NOTE | 2021-08-04 15:17 | NUR ---
CALLED DR RAMIREZ, HE IS AWARE OF EKG RESULTS THIS AM. PT ASYMPTOMATIC OF ANY CARDIAC ISSUES AND NO INTERVENTIONS NEEDED.
--- NOTE | 2021-08-04 18:52 | NUR ---
SUMM- PT ALERT TO SELF, PERIODS OF SOMNOLENCE HAS PROGRESSIVELY BECOME MORE AWAKE AND INTERACTIVE T/O DAY. HAS TREMORS AND JERKY MOTIONS. LOVE WITH 50ML OUT FROM 06-1200 TODAY AND 30CC OUT FROM 12-1800. IVF NAHCO3 AT 100ML/HR. LUNGS CLEAR, DIM BASES. NO CRACKLES, NO EDEMA NOTED. COMPLAINS OF PAIN REDIATING ACROSS ENTIRE MID BACK. MEDICATED ONCE WITH FENT 12.5MG (HALF DOSE) TOLERATED MED. POSITIVE BLOOD CX X1, STARTED ON VANCO. CRITICAL PH ON ABG 7.28, STARTED NAHCO3 GTT. MIN URINE OUTPUT, CALLED DR GARCIA 08/04 1900, ORDER FOR 500ML BOLUS AND BUMEX 2MG IV AFTER BOLUS. WILL REPORT TO LESLI HAYES.
[2021-08-05 04:42] LABS: Hematocrit 29.8 % (37.0-53.0); Hemoglobin 10.3 g/dL (13.5-17.5); Mean Corpuscular HGB 29.7 pg (26.0-34.0); Mean Corpuscular HGB Conc 34.6 g/dL (31.5-36.5); Mean Corpuscular Volume 86 fL (80-100); Mean Platelet Volume 10.5 fL (9.1-12.4); Platelet Count 182 K/mm3 (150-400); RDW Coefficient Variation 14.7 % (11.7-14.2); RDW Standard Deviation 46.5 fL (35.1-46.3); Red Blood Cell Count 3.47 M/mm3 (4.30-5.90); White Blood Cell Count 7.27 K/mm3 (4.00-11.30)
[2021-08-05 04:58] LABS: Alanine Aminotransfer (ALT/SGP 87 U/L (12-78); Albumin, Blood 1.7 g/dL (3.4-5.0); Albumin/Globulin Ratio 0.3 (0.8-1.8); Alk Phos 624 U/L (50-136); Amylase, Blood 67 U/L (25-115); Anion Gap 15 mmol/L (6-16); Aspartate Aminotrans (AST/SGOT 147 U/L (12-37); Bilirubin, Direct 2.5 mg/dL (0.0-0.3); Bilirubin, Indirect 0.3 mg/dL (0.1-0.7); Bilirubin, Total 2.8 mg/dL (0.1-1.0); Blood Urea Nitrogen 106 mg/dL (8-24); Bun/Creatinine Ratio 14.3 (12.0-20.0); CO2, Blood 26 mmol/L (21-32); CPK Creatine Kinase 843 U/L (39-308); Calcium, Blood 6.1 mg/dL (8.5-10.1); Chloride, Blood 93 mmol/L (98-108); Creatinine, Blood 7.43 mg/dL (0.60-1.20); Globulin, Blood 4.9 g/dL (2.2-4.0); Glomerular Filtration Rate 7 (60-); Glucose, Blood 257 mg/dL (70-99); Magnesium, Blood 1.7 mg/dL (1.6-2.4); Phosphorus, Blood 6.5 mg/dL (2.5-4.9); Potassium, Blood 3.8 mmol/L (3.5-5.5); Sodium, Blood 134 mmol/L (136-145); Total Protein, Blood 6.6 g/dL (6.4-8.2); Vancomycin, Random 22.7 ug/mL
--- NOTE | 2021-08-05 05:01 | NUR ---
PATIENT ALERT AND AWAKE MAJORITY OF THE NIGHT. PATIENT WAS ABLE TO VERBALIZE WORDS THAT IS VERY HAD TO UNDERSTAND. PATIENT CONTINUES WITH TREMORS AND JERKY MOVEMENTS. LOVE CATHETER PATENT DRAINING VERY LITTLE URINE. PATIENT CONTINUES ON 24 HOURS URINE COLLECTION. PATIENT DID NOT COMPLAIN OF PAIN OR SOB. PATIENT CONTINUES ON SODIUM BICARBONATE DRIP. WILL CONTINUE MONITOR.
--- NOTE | 2021-08-05 06:44 | NUR ---
PHARMACY CALLED WITH A NEW ORDER FROM DR. GARCIA TO DECREASE SODIUM BICARBONATE RATE TO 50ML.
[2021-08-05 08:08] LABS: COMPLEMENT C3, SERUM 156 mg/dL (82-167); COMPLEMENT C4, SERUM 33 mg/dL (12-38)
--- NOTE | 2021-08-05 10:38 | NUR ---
SPOKE WITH TRANSFER CENTER AT [facility] AND [facility]. CURRENTLY NO BEDS AVAILABLE. [facility] SAID LIKELY TOMORROW.
--- NOTE | 2021-08-05 11:21 | NUR ---
Echocardiogram completed.
[2021-08-05 14:21] LABS: Protein, Urine Quantitative 217.5 mg/dL (0.0-11.9)
--- NOTE | 2021-08-05 17:12 | NUR ---
PT BECOMING MORE AWAKE AND INTERACTIVE. FOLLOWS COMMANDS. SEAN. DEPENDANT IN CARE. BED BATH TODAY. IVF BOLUS 500ML NS THIS AM FOLLOWED BY BUMEX 4MG IV WITH MIN U.O. 40ML IN 4 HOURS. SENT UUN. CONT IVF WITH NAHCO3/NS TOTAL 100ML/HR. ECHO PERFORMED TODAY AND NOT READ BEFORE PT'S TRANSFER. CALLED REPORT TO ALYSSA AT [facility] [phone]. PT'S BP IS IMPROVED 130'S/70, HR 90 SR. SATS 90% 4L. LUNGS DIM DARIUS IN LEFT. PT HAS MOIST COUGH UPPER, MOD COUGH, WORKING ON COUGHING AND SWALLOWING. STOPPED NPO WHEN PT SWALLOWED A FEW SIPS AND COUGHED AFTER. STUCK WITH JELLO NO ASP NOTED. MADE NPO UNTIL GI CONSULTS. RN AWARE PT IS IN KIDNEY FAILURE WITH LITTLE U.O. LOVE EMPTIED 1630. SENDINT PT WITH IVF INFUSING AND HOSPITALS PUMP. PT SENT WITH GLASSES. HAS NO TEETH AND NO DENTURES HERE AT THE HOSP OF IN HIS BELONGINGS. SENT WITH A BELONGINGS BAG WITH CLOTHS ONLY. DAUGHTER MERCEDEZ [phone] AWARE OF [place] AND DR FREDERICK CALLED AND NOTIFIED WELL.
[2021-08-07 15:10] LABS: A/G RATIO 0.7 (0.7-1.7); ALBUMIN 2.4 g/dL (2.9-4.4); ALPHA-1-GLOBULIN 0.4 g/dL (0.0-0.4); ALPHA-2-GLOBULIN 1.1 g/dL (0.4-1.0); BETA GLOBULIN 0.9 g/dL (0.7-1.3); GAMMA GLOBULIN 1.2 g/dL (0.4-1.8); GLOBULIN, TOTAL 3.5 g/dL (2.2-3.9); IMMUNOGLOBULIN A, QN, SERUM 468 mg/dL (61-437); IMMUNOGLOBULIN G, QN, SERUM 1106 mg/dL (603-1613); IMMUNOGLOBULIN M, QN, SERUM 58 mg/dL (15-143); M-SPIKE Not Observed g/dL (Not Observed); PROTEIN, TOTAL, SERUM 5.9 g/dL (6.0-8.5)
[2021-08-08 10:10] LABS: ANTIGLOMERULAR BM AB 3 units (0-20)
[2021-08-08 15:10] LABS: ANA DIRECT Negative (Negative); ANTIMYELOPEROXIDASE (MPO) ABS <9.0 U/mL (0.0-9.0); ANTIPROTEINASE 3 (PR-3) ABS 11.2 U/mL (0.0-3.5); ATYPICAL PANCA <1:20 titer (Neg:<1:20); CYTOPLASMIC (C-ANCA) <1:20 titer (Neg:<1:20); PERINUCLEAR (P-ANCA) <1:20 titer (Neg:<1:20)
[2021-08-09 12:09] LABS: M-SPIKE, % Not Observed % (Not Observed); PROTEIN,TOTAL,URINE 184.1 mg/dL (Not Estab.)
[2021-08-12 21:06] LABS: ALDOS/RENIN RATIO 0.4 (0.0-30.0); ALDOSTERONE 1.4 ng/dL (0.0-30.0)
== END 2021-08-05 18:30 | disposition short-term general hospital (02) | DRG 872 ==
LOC: ER 14:20 → MEDS 21:35
PROVIDERS: Emergency Medicine; Internal Medicine; Internal Medicine Nephrology; Physician Assistant; ADMIT Family Medicine
DX: A41.9 Sepsis, unspecified organism (principal); C94.6 Myelodysplastic disease, not elsewhere classified; N17.9 Acute kidney failure, unspecified; E87.1 Hypo-osmolality and hyponatremia; E87.2 Acidosis; M62.82 Rhabdomyolysis; K80.30 Calculus of bile duct with cholangitis, unspecified, without obstruction; Z20.822 Contact with and (suspected) exposure to COVID-19; R65.20 Severe sepsis without septic shock; I95.9 Hypotension, unspecified; E86.0 Dehydration; R79.89 Other specified abnormal findings of blood chemistry; E78.5 Hyperlipidemia, unspecified; I25.10 Atherosclerotic heart disease of native coronary artery without angina pectoris; J44.9 Chronic obstructive pulmonary disease, unspecified; E11.22 Type 2 diabetes mellitus with diabetic chronic kidney disease; N18.9 Chronic kidney disease, unspecified; D63.1 Anemia in chronic kidney disease; I25.2 Old myocardial infarction; Z85.46 Personal history of malignant neoplasm of prostate; Z85.828 Personal history of other malignant neoplasm of skin; Z90.49 Acquired absence of other specified parts of digestive tract; Z98.890 Other specified postprocedural states; Z79.84 Long term (current) use of oral hypoglycemic drugs; Z79.899 Other long term (current) drug therapy; Z79.82 Long term (current) use of aspirin; Z87.891 Personal history of nicotine dependence
CPT/HCPCS: 36415; 36600; 51702; 51798; 70450; 71045; 74176; 80047; 80053; 80202; 81001; 81050; 82088; 82140; 82150; 82248; 82550; 82784; 82803; 82947; 83516; 83520; 83605; 83690; 83735; 84100; 84156; 84165; 84166; 84244; 84300; 85014; 85025; 85027; 85610; 86038; 86160; 86256; 86334; 86335; 87040; 87077; 87086; 87186; 87205; 93306; 94640; 94760; 96361-59; 96365-59; 96367-59; 96375-59; 99285-25; A9270; G0480; J0696; J1815; J2060; J2543; J3010; J3370; J7030; J7050; J7060; J7070; U0004

== ENCOUNTER 2022-03-22 14:27 | Observation (INO) | payer OTHER ==
[~2022-03-22] VITALS: Ht 177.8 cm; Wt 68.5 kg
[~2022-03-22 14:27] MED LIST changes: +INSULANI SC; +TASIGNA150 MG PO
[2022-03-22 15:22] LABS: Hemoglobin 6.4 g/dL (13.5-17.5); Mean Corpuscular HGB 35.8 pg (26.0-34.0); Mean Corpuscular HGB Conc 35.6 g/dL (31.5-36.5); Mean Corpuscular Volume 101 fL (80-100); Mean Platelet Volume 11.2 fL (9.1-12.4); NRBC ABSOLUTE 3.02 K/mm3 (0.00-0.02); Platelet Count 158 K/mm3 (150-400); RDW Coefficient Variation 19.5 % (11.7-14.2); RDW Standard Deviation 71.1 fL (35.1-46.3); Red Blood Cell Count 1.79 M/mm3 (4.30-5.90)
[2022-03-22 15:31] LABS: Albumin, Blood 3.1 g/dL (3.4-5.0); Albumin/Globulin Ratio 0.9 (0.8-1.8); Bilirubin, Total 0.5 mg/dL (0.1-1.0); Bun/Creatinine Ratio 16.2 (12.0-20.0); Calcium, Blood 8.2 mg/dL (8.5-10.1); Creatinine, Blood 1.48 mg/dL (0.60-1.20); Globulin, Blood 3.3 g/dL (2.2-4.0); Potassium, Blood 4.3 mmol/L (3.5-5.5); Total Protein, Blood 6.4 g/dL (6.4-8.2)
[2022-03-22 15:42] LABS: BASOPHILS PERCENT MAN 0 % (0-2); BLASTS PERCENT MAN 3 % (0-0); EOSINOPHILS PERCENT MAN 0 % (0-6); LYMPHOCYTES ABSOLUTE MAN 21.27 K/mm3 (0.84-5.20); LYMPHOCYTES PERCENT MAN 7 % (21-46); METAMYELOCYTE ABSOLUTE MAN 33.43 K/mm3 (0.00-0.00); METAMYELOCYTE PERCENT MAN 11 % (0-0); MONOCYTES PERCENT MAN 0 % (4-13); MYELOCYTE ABSOLUTE MAN 54.71 K/mm3 (0.00-0.00); MYELOCYTE PERCENT MAN 18 % (0-0); NEUTROPHILS ABSOLUTE MAN 158.06 K/mm3 (1.96-9.15); PROMYELOCYTE ABSOLUTE MAN 27.35 K/mm3 (0.00-0.00); PROMYELOCYTE PERCENT MAN 9 % (0-0); SEG NEUTROPHILS PERCENT MAN 52 % (41-73); TOTAL CELLS COUNTED 100
[2022-03-22 15:45] LABS: White Blood Cell Count 303.97 K/mm3 (4.00-11.30)
[2022-03-22 16:43] LABS: Source, Urine Clean Catch
[2022-03-22 16:47] LABS: Appearance, Urine Cloudy (Clear); Bilirubin, Urine Neg (Neg); Blood, Urine 1+ (Neg); Color, Urine Yellow (P-Yellow); Glucose Qualitative, Urine Neg (Neg); Ketones, Urine Neg (Neg); Leukocyte Esterase, Urine 1+ (Neg); Nitrite, Urine Neg (Neg); Protein, Urine 2+ (Neg); Specific Gravity, Urine 1.015 (1.003-1.022); Urobilinogen, Urine 1+ (Normal)
[2022-03-22 16:56] LABS: Bacteria Many /hpf; Renal Epithelial Rare /hpf (0-Rare); Squamous Epithelial Cells Few /hpf (Few)
--- NOTE | 2022-03-23 04:27 | NUR ---
NEW ADMISSION FROM ER. ON ASSESSMENT PATIENT ALERT TO SELF, PLACE, BELIEVES IT IS 2020 DOES KNOW ITS MAY HOWEVER DOES NOT KNOW WHO THE PRESIDENT IS. PT NOTED WITH BIG BRUISE TO THE RIGHT GLUTEAL HE IS UNSURE OF HOW LONG THAT HAS BEEN THERE OR IF ITS FROM FALL TODAY. BP HAS BEEN SOFT LATEST ONE , PT RECEIVING NS AT 100 ML/HR. PT HAS DOCUMENTED TEMPERATURES OF 100.3 AND 101.2 HOWEVER THOSE WERE DONE TEMPORALLY. ORAL TEMPERATURES HAVE BEEN 99.3 AND 98.2. PT ACCIDENTALLY REMOVED IV AND NEW ONE PLACED ON LFA BY CINDER WORKER. PT RECEIVED 1 UNIT OF PRBC IN ER FOR HGB 6.4 NO FOLLOW UP LABS TILL MORNING. PT HAS NILOTINIB 150 MG P.O. DUE AT BEDTIME HOWEVER PER PHARMACY HOSPITAL DOES NOT CARRY THIS MEDICATION. THEY SUGGEST WE NOTIFY KENRICK AND IN AM TO SEE IF THEY COULD OBTAIN FROM OUTSIDE. PER PT THERE IS NO ONE THAT COULD BRING THIS MEDICATION IN FROM HOME. PT WITH NO NEW COMPLAINS AT THIS TIME.
[2022-03-23 05:17] LABS: Hematocrit 19.3 % (37.0-53.0); Hemoglobin 6.7 g/dL (13.5-17.5); Mean Corpuscular HGB 34.4 pg (26.0-34.0); Mean Corpuscular HGB Conc 34.7 g/dL (31.5-36.5); Mean Corpuscular Volume 99 fL (80-100); Mean Platelet Volume 11.2 fL (9.1-12.4); NRBC ABSOLUTE 3.28 K/mm3 (0.00-0.02); NRBC Auto 1.3 /100 WBC (0.0-0.2); Platelet Count 142 K/mm3 (150-400); RDW Coefficient Variation 18.5 % (11.7-14.2); RDW Standard Deviation 64.9 fL (35.1-46.3); Red Blood Cell Count 1.95 M/mm3 (4.30-5.90)
[2022-03-23 05:22] LABS: White Blood Cell Count 253.52 K/mm3 (4.00-11.30)
[2022-03-23 05:40] LABS: Calcium, Blood 7.8 mg/dL (8.5-10.1); Creatinine, Blood 1.39 mg/dL (0.60-1.20); Potassium, Blood 4.1 mmol/L (3.5-5.5)
--- NOTE | 2022-03-23 10:05 | NUR ---
NURSE NOTE PATIENT RECEIVED 1 UNIT OF BLOOD THIS MORNING WITH NO INCIDENT. VITALS DONE THROUGHOUT.
--- NOTE | 2022-03-23 16:21 | NUR ---
SHIFT SUMMARY PATIENT IS ALERT AND ORIENTED. PATIENT IS PLEASENT AND COOPERATIVE WITH CARE. PATIENT RECEIVED 1 UNIT OF BLOOD WITHOUT INCIDENT. PATIENT HAS RECEIVED 3 BOLUSES OF NORMAL SALINE TO IMPROVE ORTHOSTATIC VITALS. NO ACUTE EVENTS THIS SHIFT. VITAL SIGNS REVIEWED. BED IN LOWEST AND LOCKED POSITION. CALL LIGHT IN PLACE. WILL MONITOR UNTIL SHIFT CHANGE.
--- NOTE | 2022-03-23 18:17 | NUR ---
DISCHARGE NOTE REFER TO PRIOR NOTE. PATIENT IS BEING DISCHARGED TO HOME WITH HOME HEALTH. PATIENT IS BEING DISCHARGED WITH SON AND AIRPORT ATTENDANT MARCHE WHEELING PATIENT OUT TO PATIENTS HOME.
== END 2022-03-23 18:16 | disposition home or self-care (01) ==
LOC: ER 14:27 → MEDS 19:12
PROVIDERS: Emergency Medicine; Internal Medicine; Student in an Organized Health Care Education/Training Program; ADMIT Internal Medicine
DX: D64.9 Anemia, unspecified (principal); I95.89 Other hypotension; I25.10 Atherosclerotic heart disease of native coronary artery without angina pectoris; N18.30 Chronic kidney disease, stage 3 unspecified; E11.22 Type 2 diabetes mellitus with diabetic chronic kidney disease; C94.6 Myelodysplastic disease, not elsewhere classified; J44.9 Chronic obstructive pulmonary disease, unspecified; I25.2 Old myocardial infarction; Z85.46 Personal history of malignant neoplasm of prostate; Z85.828 Personal history of other malignant neoplasm of skin; Z79.82 Long term (current) use of aspirin; Z79.4 Long term (current) use of insulin; Z79.899 Other long term (current) drug therapy
CPT/HCPCS: 36415; 36430; 71046; 80048; 80053; 81001; 82947; 83605; 83880; 84484; 85014; 85018; 85025; 85027; 86850; 86900; 86901; 86923; 87086; 93005; 93010; 96360; 96361; 97161; 97530; 99285-25; A9270; G0378; J7030; J7040; P9016

== ENCOUNTER 2022-09-18 03:34 | Emergency (ER) | payer OTHER ==
[~2022-09-18] VITALS: Ht 180.3 cm; Wt 74.8 kg
[2022-09-18 04:30] LABS: Albumin, Blood 3.2 g/dL (3.4-5.0); Albumin/Globulin Ratio 0.9 (0.8-1.8); Bilirubin, Total 0.5 mg/dL (0.1-1.0); Bun/Creatinine Ratio 16.3 (12.0-20.0); Calcium, Blood 8.7 mg/dL (8.5-10.1); Creatinine, Blood 1.35 mg/dL (0.60-1.20); Globulin, Blood 3.5 g/dL (2.2-4.0); Total Protein, Blood 6.7 g/dL (6.4-8.2)
[2022-09-18 05:03] LABS: Mean Corpuscular Volume 101 fL (80-100); Mean Platelet Volume 11.1 fL (9.1-12.4); NRBC ABSOLUTE 0.92 K/mm3 (0.00-0.02); NRBC Auto 0.3 /100 WBC (0.0-0.2); Platelet Count 51 K/mm3 (150-400); RDW Coefficient Variation 17.7 % (11.7-14.2); Red Blood Cell Count 1.93 M/mm3 (4.30-5.90)
[2022-09-18 05:14] LABS: Hematocrit 19.5 % (37.0-53.0); Hemoglobin 7.2 g/dL (13.5-17.5); Mean Corpuscular HGB 37.3 pg (26.0-34.0); Mean Corpuscular HGB Conc 36.9 g/dL (31.5-36.5)
[2022-09-18 05:16] LABS: White Blood Cell Count 325.34 K/mm3 (4.00-11.30)
[2022-09-18 05:32] LABS: BAND PERCENT MAN 16 % (0-8); BASOPHILS PERCENT MAN 0 % (0-2); BLASTS PERCENT MAN 8 % (0-0); EOSINOPHILS PERCENT MAN 2 % (0-6); LYMPHOCYTES ABSOLUTE MAN 13.01 K/mm3 (0.84-5.20); LYMPHOCYTES PERCENT MAN 4 % (21-46); METAMYELOCYTE ABSOLUTE MAN 45.54 K/mm3 (0.00-0.00); METAMYELOCYTE PERCENT MAN 14 % (0-0); MONOCYTES PERCENT MAN 0 % (4-13); MYELOCYTE ABSOLUTE MAN 26.02 K/mm3 (0.00-0.00); MYELOCYTE PERCENT MAN 8 % (0-0); NEUTROPHILS ABSOLUTE MAN 198.45 K/mm3 (1.96-9.15); PROMYELOCYTE PERCENT MAN 2 % (0-0); SEG NEUTROPHILS PERCENT MAN 45 % (41-73); TOTAL CELLS COUNTED 95
== END 2022-09-18 11:28 | disposition home or self-care (01) ==
LOC: ER 03:34
PROVIDERS: Emergency Medicine
DX: D64.9 Anemia, unspecified (principal); S51.011A Laceration without foreign body of right elbow, initial encounter; S20.219A Contusion of unspecified front wall of thorax, initial encounter; W18.30XA Fall on same level, unspecified, initial encounter; E11.9 Type 2 diabetes mellitus without complications; J44.9 Chronic obstructive pulmonary disease, unspecified; F17.210 Nicotine dependence, cigarettes, uncomplicated
CPT/HCPCS: 71045; 73070; 80053; 85025; 86850; 86900; 86901; 86920; 93005; 93010; J7030; P9016

== ENCOUNTER 2022-12-11 17:52 | Observation (INO) | payer OTHER ==
[~2022-12-11] VITALS: Ht 177.8 cm; Wt 78.0 kg
[2022-12-11 18:26] LABS: International Normalized Ratio 1.61; Prothrombin Time Results 16.4 Sec (9.7-11.5)
[2022-12-11 18:29] LABS: Albumin, Blood 2.3 g/dL (3.4-5.0); Albumin/Globulin Ratio 0.9 (0.8-1.8); Bilirubin, Total 0.4 mg/dL (0.1-1.0); Bun/Creatinine Ratio 16.1 (12.0-20.0); Creatinine, Blood 2.05 mg/dL (0.60-1.20); Globulin, Blood 2.6 g/dL (2.2-4.0); Potassium, Blood 3.2 mmol/L (3.5-5.5); Total Protein, Blood 4.9 g/dL (6.4-8.2)
[2022-12-11 19:36] LABS: Hemoglobin 6.1 g/dL (13.5-17.5); Mean Corpuscular HGB 42.1 pg (26.0-34.0); Mean Corpuscular HGB Conc 37.4 g/dL (31.5-36.5); Mean Corpuscular Volume 112 fL (80-100); NRBC ABSOLUTE 0.81 K/mm3 (0.00-0.02); NRBC Auto 0.2 /100 WBC (0.0-0.2); RDW Coefficient Variation 17.4 % (11.7-14.2); RDW Standard Deviation 70.6 fL (35.1-46.3); Red Blood Cell Count 1.45 M/mm3 (4.30-5.90)
[2022-12-11 19:37] LABS: Mean Platelet Volume 11.3 fL (9.1-12.4)
[2022-12-11 19:40] LABS: White Blood Cell Count >440.00 K/mm3 (4.00-11.30)
[2022-12-11 19:41] LABS: Hematocrit 16.3 % (37.0-53.0); Platelet Count 33 K/mm3 (150-400)
[2022-12-11 19:43] LABS: BAND PERCENT MAN 4 % (0-8); BASOPHILS PERCENT MAN 0 % (0-2); EOSINOPHILS PERCENT MAN 7 % (0-6); LYMPHOCYTES PERCENT MAN 1 % (21-46); METAMYELOCYTE PERCENT MAN 4 % (0-0); MONOCYTES PERCENT MAN 0 % (4-13); MYELOCYTE PERCENT MAN 5 % (0-0); SEG NEUTROPHILS PERCENT MAN 36 % (41-73); TOTAL CELLS COUNTED 100
--- NOTE | 2022-12-11 22:46 | NUR ---
PATIENT TO ICU 9 AT 2125 FROM ED. PUPILS DILATED, NO RESPONSE. EXTREMITIES FLACCID, ABNORMAL FLEXION IN LOWER EXTREMITIES. NO GAG OR COUGH WHEN SUCTIONED. 02 SATS 97% ON VENT AC VC 16/500/5/40% RR 16. LS CLEAR TO DIMINISHED. HR SR 80s WITH MULTIPLE PVCs. BP HYPOTENSIVE, NO ESCALATION IN CARE. CONTINUEING CURRENT CARE TILL ALL FAMILY ARRIVES AND WILL PROCEDE WITH EXTUBATION. LESLIE AND OTHER FAMILY AT BEDSIDE.
--- NOTE | 2022-12-12 02:59 | NUR ---
PATIENT REMAINED INTUBATED UNTIL ALL FAMILY COULD BE AT BEDSIDE. NO CHANGES IN NEURO STATUS OR VITALS DURING THAT TIME. DAUGHTER DEAN INFORMED THIS RN THAT THEY WERE READY FOR THE PATIENT TO BE EXTUBATED AND DID NOT WISH TO CONTINUE WITH VENTILATOR OR ANY FURTHER TREATMENTS. PATIENT EXTUBATED AT 0213, AND PASSED AT 0222. VERIFIED WITH JAHAIRA Girard RN. FAMILY VERIFIED PATIENT HAD NO BELONGINGS OR JEWELRY WITH HIM
[2022-12-17 12:15] LABS: BLASTS PERCENT MAN 43 % (0-0)
== END 2022-12-12 02:22 ==
LOC: ER 17:52 → ICUW 17:53 → ER 19:37 → ICUW 19:37
PROVIDERS: Emergency Medicine; ADMIT Internal Medicine
DX: S06.5XAA Traumatic subdural hemorrhage with loss of consciousness status unknown, initial encounter (principal); S06.A1XA Traumatic brain compression with herniation, initial encounter; D47.1 Chronic myeloproliferative disease; I25.10 Atherosclerotic heart disease of native coronary artery without angina pectoris; E11.22 Type 2 diabetes mellitus with diabetic chronic kidney disease; N18.30 Chronic kidney disease, stage 3 unspecified; J44.9 Chronic obstructive pulmonary disease, unspecified; I25.2 Old myocardial infarction; X58.XXXA Exposure to other specified factors, initial encounter
CPT/HCPCS: 51702; 70450; 71045; 80053; 84484; 85025; 85610; 85730; 86850; 86900; 86901; 93005; 93010; 94002; 94003; 99291-25; G0378; G0390; J2270